=== PATIENT | female | born 1955 | race Asian ===

== ENCOUNTER 2018-12-22 12:15 | Emergency (ER) | payer OTHER ==
[~2018-12-22] VITALS: Ht 167.6 cm; Wt 67.1 kg
[2018-12-22 13:05] VITALS: Ht 167.6 cm; Wt 67.1 kg
[2018-12-22 15:26] VITALS: BP 138/70
== END 2018-12-22 15:26 | disposition home or self-care (01) ==
LOC: ED 12:15
DX: R50.9 Fever, unspecified (principal); M79.10 Myalgia, unspecified site; R42 Dizziness and giddiness; K57.90 Diverticulosis of intestine, part unspecified, without perforation or abscess without bleeding; I10 Essential (primary) hypertension; E03.9 Hypothyroidism, unspecified; F17.210 Nicotine dependence, cigarettes, uncomplicated; F41.9 Anxiety disorder, unspecified; Z90.49 Acquired absence of other specified parts of digestive tract; Z98.890 Other specified postprocedural states; Z71.6 Tobacco abuse counseling
CPT/HCPCS: 87804; 99406